=== PATIENT | male | born 1990 | race Two or more races ===

== ENCOUNTER 2021-05-31 14:11 | Emergency (ER) | payer MEDICAID, OTHER ==
[~2021-05-31] VITALS: Ht 182.9 cm; Wt 99.8 kg
[2021-05-31 14:35] VITALS: BP 148/72
[2021-05-31 15:03] LABS: Basophils # (auto) 0 10 ^3/uL (0-0.2); Basophils % (auto) 0.2 % (0.0-2.0); Eosinophils # (auto) 0.1 10 ^3/uL (0-0.8); Eosinophils % (auto) 0.8 % (0.0-7.0); Hematocrit 43.4 % (41.0-53.0); Hemoglobin 15.4 g/dL (13.5-17.5); Lymphocytes # (auto) 2.9 10 ^3/uL (0.4-5.4); Lymphocytes % (auto) 18.7 % (10.0-50.0); Mean Corpuscular Hemoglobin 33.7 pg (28.0-32.0); Mean Corpuscular Hgb Conc. 35.6 g/dL (32.0-36.0); Mean Corpuscular Volume 94.6 fL (80.0-100.0); Monocytes # (auto) 1.3 10 ^3/uL (0-1.3); Monocytes % (auto) 8.5 % (0.0-12.0); Neutrophils # (auto) 11.1 10 ^3/uL (1.6-8.6); Neutrophils % (auto) 71.8 % (37.0-80.0); Nucleated Red Blood Cells % 0.1 %; Platelet Count (auto) 345 10^3/uL (140-450); Red Blood Cells 4.58 10^6/uL (4.5-5.90); Red Cell Distribution Width 13.1 % (11.8-14.3); White Blood Cell 15.4 10^3/uL (4.4-10.8)
[2021-05-31 15:19] LABS: Anion Gap 6 (5-15); Blood Alcohol < 3.0 mg/dL (0-5); Calcium 8.5 mg/dL (8.5-10.1); Carbon Dioxide 26 mmol/L (21-32); Chloride 106 mmol/L (98-107); Glucose 87 mg/dL (74-106); Potassium 3.6 mmol/L (3.5-5.1); Sodium 138 mmol/L (136-145)
[2021-05-31 15:21] LABS: GFR African American 93 mL/min; GFR Non-African American 77 mL/min
[2021-05-31 15:58] LABS: BUN/Creatinine Ratio 16.2; Blood Urea Nitrogen 19 mg/dL (7-18)
[2021-05-31 15:59] LABS: Amphetamine Screen, Urine POSITIVE (NEGATIVE); Cannabinoid Screen, Urine POSITIVE (NEGATIVE)
[2021-05-31 16:06] LABS: Barbiturate Scree,Urine NEGATIVE (NEGATIVE); Benzodiazephine Screen, Urine NEGATIVE (NEGATIVE); Cocaine Screen, Urine NEGATIVE (NEGATIVE); Opiate Scree,Urine NEGATIVE (NEGATIVE); Phencyclidine Screen, Urine NEGATIVE (NEGATIVE)
== END 2021-05-31 16:22 | disposition home or self-care (01) ==
LOC: ER 14:11 → EDBD 14:11 → ER 16:22
DX: F41.8 Other specified anxiety disorders (principal); F15.10 Other stimulant abuse, uncomplicated; F12.10 Cannabis abuse, uncomplicated; F17.210 Nicotine dependence, cigarettes, uncomplicated
CPT/HCPCS: 36415; 80048; 80307; 80320; 85025; 85049

== ENCOUNTER 2021-09-11 12:20 | Emergency (ER) | payer MEDICAID ==
[~2021-09-11] VITALS: Ht 185.4 cm; Wt 78.0 kg
[2021-09-11 14:25] VITALS: BP 126/93
== END 2021-09-11 14:33 | disposition home or self-care (01) ==
LOC: ER 12:20
DX: G44.309 Post-traumatic headache, unspecified, not intractable (principal); F17.210 Nicotine dependence, cigarettes, uncomplicated; F12.10 Cannabis abuse, uncomplicated; F15.10 Other stimulant abuse, uncomplicated
CPT/HCPCS: 70450